=== PATIENT | male | born 1970 | race Caucasian/White ===

== ENCOUNTER 2020-09-30 06:10 | Observation (INO) ==
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
[~2020-09-30 06:10] MED LIST: ACETAMINOPHEN 500 MG TAB PO SCH; CeleBREX 200 MG CAP PO SCH; GABAPENTIN 900 MG DOSE PO SCH; LR 15ML/HR IV SCH; ceFAZolin 2000MG 2,000 MG/15 ML SYR IV SCH
[2020-09-30] MEDS ORDERED: GLYCOPYRROLATE 0.2 MG/ML VIAL ONE (06:42)
[2020-09-30] MEDS ORDERED: ROCURONIUM BROMIDE 10 MG/ML 5 ML VIAL IV ONE (06:42)
[2020-09-30] MEDS ORDERED: LIDOCAINE HCL 2% 2 ML VIAL/AMP(20MG/ML) INFIL ONE (06:42)
[2020-09-30] MEDS ORDERED: DEXAMETHASONE SOD INJ 4 MG/ML VIAL ONE (06:42)
[2020-09-30] MEDS ORDERED: PROPOFOL IV EMULSION 10 MG/ML 20 ML VIAL IV ONE (06:42)
[2020-09-30] MEDS ORDERED: SUCCINYLCHOLINE CHLORIDE 20 MG/ML 10 ML VIAL IV ONE (06:42)
[2020-09-30] MEDS ORDERED: ONDANSETRON INJ 2 MG/ML 2 ML VIAL ONE (06:42)
[2020-09-30] MEDS ORDERED: NEOSTIGMINE METHYLSULFATE 1 MG/ML 10ML VIAL ONE (06:42)
[2020-09-30] MEDS ORDERED: fentaNYL citrate 100 MCG/2 ML VIAL ONE ×4 (06:43→09:26)
[2020-09-30] MEDS ORDERED: MIDAZOLAM HCL 1 MG/ML 2ML VIAL ONE (06:43)
[2020-09-30] MEDS ORDERED: KETAMINE 50 MG/5 ML SYRINGE ONE (06:43)
[2020-09-30] MEDS ORDERED: HYDROmorphone INJ 1 MG/ML SYRINGE IV PRN ×2 (07:03→11:45)
[2020-09-30] MEDS ORDERED: ePHEDrine sulfate 50 MG/ML AMP IV PRN (07:03)
[2020-09-30] MEDS ORDERED: ONDANSETRON INJ 2 MG/ML 2 ML VIAL IV PRN ×3 (07:03→11:45)
[2020-09-30] MEDS ORDERED: PHENYLEPHRINE 100MCG/ML 5ML SYR IV PRN (07:03)
[2020-09-30] MEDS ORDERED: MEPERIDINE HCL 25 MG/ML CARP/VIAL IV PRN (07:03)
[2020-09-30] MEDS ORDERED: ATROPINE SULFATE 0.1 MG/ML 10ML SYR IV PRN (07:03)
[2020-09-30] MEDS ORDERED: BACITRACIN INJ 50,000 UNIT VIAL ONE (07:11)
--- NOTE | 2020-09-30 07:35 | History & Physical Bridge Note ---
Date of Service September 30, 2020 History & Physical Bridge Note I have examined the patient, reviewed the History & Physical and in the interval since the performance of the History & Physical I have noted the following changes of clinical significance: no changes noted
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
[2020-09-30] MEDS ORDERED: HYDROmorphone INJ 2 MG/ML SYR/VIAL ONE (08:27)
[2020-09-30] MEDS ORDERED: FLOSEAL HEMOSTATIC MATRIX 10ML TOP ONE (09:24)
--- NOTE | 2020-09-30 09:42 | Operative Report ---
Post Operative Report Pre & Post Diagnosis Operation Date: 09/30/20 07:45 Pre-Op Diagnosis: Spinal Stenosis, Cervical Region Post-Op Diagnosis: Spinal Stenosis, Cervical Region I identified the patient and participated in the time-out.: Yes Procedure Operation Date: 09/30/20 07:45 Actual Procedures #1 anterior cervical discectomy with bilateral foraminotomies C5-6 and C6-7. #2 anterior cervical arthrodesis C5-6 and C6-7. #3 placement of Spira 8 mm cage at C5-C6 and a 9 mm cage at C6-C7 both filled with DBM. #4 application of wallace plate and screws across C5-6 C6-7. Surgeon Tu Nicole, DO Horticulturalist Rosmery Frey Estimated Blood Loss 50 Findings See Below The patient is 5 foot 9 inches tall weighing over 102 kg with a BMI in excess of 33. The patient's body habitus did create significant technical difficulty both with positioning exposure and the procedure itself adding at least 50% increase to the operative time. Specimens None Indications This is a 50-year-old male who presents with chronic persistent neck and arm symptoms after failing course of nonoperative care is here for surgical invention. Description of Procedure Patient met with identified informed consent obtained. Patient was then taken to the operative suite underwent a patient placed in supine position the Brice table at [place] head of it. All bony prominences well-padded eyes inspected to ensure no external pressure placed upon the. This point the anterior cervical spine was prepped and draped in sterile fashion. The assistance of fluoroscopy at L5 to see 6 vertebral body and a transverse incision was placed along the right anterior aspect of the cervical spine overlying his region. Sharp dissection with assistance of bipolar electrocautery performed down to and exposing the anterior cervical spine from C5-C7. Soft retractors placed. Then performed a complete discectomy of C5-6 out to the uncovertebral joints bilaterally. Tanana distraction pins were utilized to assist in visualization. Removed all posterior annular fibers longitudinal ligament bilateral foraminotomies performed an 8 mm spiral cage filled with DBM tapped in position. Then proceeded to C6-C7. Again complete discectomy performed out to the uncovertebral joints bilaterally. Tanana distraction pins again utilized. Removal posterior annular fibers longitudinal ligament bilateral foraminotomies performed. Endplates burred to subcortical bleeding bone and a 9 mm Spira cage filled with DBM tapped in position. Distracting apparatus was removed 5 complete screws applied with the assistance of fluoroscopy. A 10 round JANNET drain inserted. The incision was then closed with 2 Vicryl in the fashion of 4 Monocryl for final skin closure. Steri-Strip sterile dressings placed. Patient will continue PACU stable condition. Please note spinal cord monitoring was uti lized at the procedure no changes noted. Lastly Rosmery Frey was present at the entire procedure involved the patient positioning complex portions of the surgery and final skin closure. I attest to the content of the Intraoperative Record and any orders documented therein. Any exceptions are noted below.
[2020-09-30] MEDS: fentaNYL citrate 100 MCG/2 ML VIAL IV PRN ×4 (10:03→10:23)
[2020-09-30] MEDS: LABETALOL HCL IV 5 MG/ML 20ML IV PRN ×2 (10:05→10:46)
--- NOTE | 2020-09-30 10:39 | Fluoroscopy Report ---
FL cervical 2-3V CLINICAL HISTORY: ACDF C5-C7 COMPARISON STUDY: None. FLUOROSCOPY TIME: 17 seconds. FINDINGS: 3 fluoroscopic spot image of the cervical spine demonstrate C5-C7 ACDF. The hardware appear s intact. An endotracheal tube appears in good position. IMPRESSION: Fluoroscopy provided for C5-C7 ACDF. ACT 112: Negative or not required by law. Electronically signed by: Brijesh Schroeder M.D. 09/30/2020 10:38 AM
--- NOTE | 2020-09-30 10:56 | Anesthesiology Progress Note ---
Date of Service September 30, 2020 Anesthesia Post Procedure Vital Signs Vital Signs: Temp Pulse Pulse Resp BP BP Pulse Ox 09/30/20 10:45 63 16 160/98 H 99 09/30/20 10:35 59 L 16 165/99 H 99 09/30/20 10:25 62 16 148/88 H 96 09/30/20 10:15 62 16 129/83 98 09/30/20 10:05 66 16 171/106 H 99 09/30/20 09:55 68 16 165/104 H 98 09/30/20 09:48 36.0 C L 81 16 151/102 H 98 09/30/20 06:28 36.5 C 78 18 162/97 H 99 Pain Intensity Posterior Neck: Pain Intensity: 2 Transfer of Care Handoff Completed per policy Notes Mental Status: alert / awake / arousable Patient Amnestic to Procedure: Yes Nausea / Vomiting: adequately controlled Pain: adequately controlled Airway Patency, RR, SpO2: stable & adequate BP & HR: stable & adequate and see Notes below Hydration State: stable & adequate Anesthetic Complications: no major complications apparent and Pt Satisfied with anesthetic care Notes: The patient is awake and comfortable. His neck has no swelling. He had some HTN that was treated with labetalol but his vitals are stable.
[2020-09-30] MEDS ORDERED: ALUMINUM/MAGNESIUM SUSP 30 ML UDC PO PRN ×2 (11:45)
[2020-09-30] MEDS ORDERED: hydrOXYzine HCl 25 MG TAB PO PRN ×2 (11:45)
[2020-09-30] MEDS ORDERED: DO NOT ADMINISTER FLU VACCINE PRN ×2 (11:45)
[2020-09-30] MEDS ORDERED: DEXAMETHASONE SOD PHOSPHATE 8 MG in SYRINGE 0 ML IV PRN (11:45)
[2020-09-30] MEDS ORDERED: RACEPINEPHRINE 2.25% NEBU SOLN 0.5 ML VIAL INH PRN ×2 (11:45)
[2020-09-30] MEDS ORDERED: NALOXONE HCL 0.4 MG/1 ML VIAL/CARP IV PRN ×2 (11:45)
[2020-09-30] MEDS ORDERED: ACETAMINOPHEN 500 MG TAB PO PRN (11:45)
[2020-09-30] MEDS ORDERED: SOD PHOSPHATE/SOD BIPHOSPHATE ENEMA 132 ML BTL PR PRN ×2 (11:45)
[2020-09-30] MEDS ORDERED: LORazepam 0.5 MG/1 ML VIAL IV PRN ×2 (11:45)
[2020-09-30] MEDS ORDERED: HYDROmorphone INJ 0.5 MG/0.5 ML SYR IV PRN (11:45)
[2020-09-30] MEDS ORDERED: MAGNESIUM HYDROXIDE SUSP 30 ML UDC PO PRN ×2 (11:45)
[2020-09-30] MEDS ORDERED: diphenhydrAMINE Capsule 25 MG CAP PO PRN ×2 (11:45)
[2020-09-30] MEDS ORDERED: PROMETHAZINE HCL 12.5 MG in SODIUM CHLORIDE 0.9% 50 ML IV PRN (11:45)
[2020-09-30] MEDS ORDERED: DO NOT ADMINISTER PNEUMOCOCCAL VACCINE PRN ×2 (11:45)
[2020-09-30] MEDS ORDERED: ONDANSETRON 4 MG OD TAB PO PRN ×2 (11:45)
[2020-09-30] MEDS ORDERED: LORazepam 0.5 MG TAB PO PRN ×2 (11:45)
[2020-09-30] MEDS ORDERED: traMADol HCL 50 MG TABLET PO PRN (11:45)
[2020-09-30] MEDS ORDERED: ACETAMINOPHEN 1,000 MG/100 ML VIAL IV PRN (11:45)
[2020-09-30] MEDS ORDERED: FAMOTIDINE 20 MG TAB PO PRN ×2 (11:45)
[2020-09-30] MEDS ORDERED: METOCLOPRAMIDE HCL INJ 5 MG/ML 2 ML VIAL IV PRN ×2 (11:45)
[2020-09-30] MEDS: LACTATED RINGER'S 1,000 ML IV SCH ×2 (13:14→20:13)
[2020-09-30] MEDS: ceFAZolin 2000MG 2,000 MG/15 ML SYR IV SCH ×2 (16:35→23:18)
[2020-09-30] MEDS: oxyCODONE HCL IR 5 MG TAB (IMMEDIATE RELEASE) PO PRN (20:27)
[2020-09-30] MEDS ORDERED: DOCUSATE SODIUM/SENNA 50/8.6MG TAB PO SCH ×2 (21:00)
[2020-10-01] MEDS: oxyCODONE HCL IR 5 MG TAB (IMMEDIATE RELEASE) PO PRN (03:58)
[2020-10-01 06:27] LABS: BUN Creatinine Ratio 13.7 (10-20); Calcium 9.3 mg/dl (8.5-10.1); Est GFR (African American) 115.3; Est GFR (Non-African American) 99.5; Potassium 4.1 mmol/L (3.5-5.1)
[2020-10-01] MEDS ORDERED: PSYLLIUM 58.6% POWDER PACKET PO SCH (09:00)
[2020-10-01] MEDS ORDERED: DEXAMETHASONE SOD PHOSPHATE 8 MG in SYRINGE 0 ML IV SCH (09:00)
[2020-10-01] MEDS ORDERED: POLYETHYLENE (MIRALAX) 17 GM PACK PO SCH ×2 (09:42→10:19)
[2020-10-02] MEDS ORDERED: bisacodyL 10 MG SUPP PR PRN ×2 (09:42→10:19)
--- NOTE | 2020-10-04 11:52 | Discharge Summary ---
Date of Service October 04, 2020 Admission HPI Per Admitting Provider This is a 50-year-old male who presents with current persistent neck and arm symptoms after failing course of nonoperative care is here for surgical invention. Admission Exam (Per Admitting) Constitutional WD/WN, vitals as above Eyes normal visual sanchez by confrontation ENMT external ear and nose normal, oropharynx normal Neck normal visual inspection Respiratory normal respiratory effort Cardiovascular Rate/Rhythm: regular rate Extremities: normal capillary refill Gastrointestinal (Abdomen) Inspection/Auscultation: abdomen normal to inspection Musculoskeletal no cyanosis or clubbing, extremities motor strength 5/5 Skin no rashes, warm and dry Neurologic normal touch/pain/proprioception and moves all extremities Psychiatric A+Ox3, euthymic affect Discharge Data Procedures Performed Operation Date: 09/30/20 07:45 Actual Procedures p C5-C7 Anterior Cervical Discectomy and Fusion, Spinal Cord Monitoring - Tu Nicole DO Hospital Course (1) Cervical radiculopathy: patient had an uncomplicated hospital course. pre operative symptoms/radic ulopathy greatly improved. patient was discharged home on POD #1. Discharge Instructions ACTIVITY RECOMMENDATIONS: SELF CARE INSTRUCTIONS AFTER CERVICAL FUSIONS 1. No smoking. Smoking drastically decreases the chance of a solid fusion. 2. No bending, lifting more than 5 pounds, or twisting (roll like a log when turning in bed). 3. You may shower 3 days after surgery. Thoroughly dry wound. Do not soak in the tub. 4. Cervical collar: Must be worn at all times including sleeping. You may remove the brace only to bath, eat and if you are sitting in a recliner. 5. Please walk as much as you can for exercise. Gradually increase the distance that you walk as your endurance increases. SPECIAL CARE INSTRUCTIONS: VERY IMPORTANT TO READ AND REVIEW A. Do not take any anti-inflammatory medications (i.e. Indocin, Advil, Aspirin, Naprosyn, Aleve, Motrin, etc.) as these may inhibit the chance of a solid fusion. Tylenol is okay to take. B. Your surgical incision has been closed with a cosmetic suture under the skin that will dissolve in about 6 weeks. In 14 days, you can use a pair of clean scissors and cut the suture that is left outside of the skin at the ends of your incision. C. Complications are uncommon, but please contact us if you have any signs or symptoms of: 1. wound infection (fever higher than 102.5 degrees F, redness, separation of wound, drainage, or increasing pain from the incision) 2. blood clots in legs (pain, swelling, redness and warmth in legs) 3. urinary tract infection (fever higher than 102.5 degrees, burning upon urination or increased frequency of urination) 4. nerve problems (inability to walk on your toes or heels, numbness, loss of bowel or bladder control) 5. any other symptoms that concern you. D. Please call the office at if you have any concerns or questions about your operation or recovery. MANAGING PAIN AFTER SPINAL SURGERY 1. Narcotic medication is intended for short-term use and will be provided for surgical pain. Surgical pain usually lasts for a period of 4-6 weeks. Narcotic medication includes Percocet, Vicodin, Darvocet, Tylenol #3 or Lortab. 2. Longer-term pain is more appropriately treated with non-narcotic medication such as Tylenol ES. 3. Muscle spasm is not appropriately treated with narcotics. Muscle relaxers such as Soma, Flexeril or Skelaxin can be used along with Tylenol ES. 4. Remember that we all live with some "aches and pains". This is not unusual or uncommon after an injury or as we get older. 5. We will provide appropriate medication within the normal guidelines of their prescribed use. We will also be very cautious and aware of potential abuse and extended duration of patients' medication needs. 6. Please allow 2-3 days to process refills. Prescriptions will not be mailed but must be picked up at the office. FOLLOW UP VISIT: Keep your scheduled follow-up appointment. Any questions, please call the office at . Supervising Physician Co-Signing Physician Notes Dr. Tu Nicole
== END 2020-10-01 11:41 | disposition home or self-care (01) ==
LOC: ASU 06:10 → 3W 10:21 → INTOOBSV 10:21